=== PATIENT | female | born 1970 | race Caucasian/White ===

== ENCOUNTER 2022-08-08 10:44 | Emergency (ER) | payer BC ==
[2022-08-08 10:55] VITALS: BP 188/94; PULSE 72; O2SAT 98
--- NOTE | 2022-08-08 10:58 | ERPHSYRPT ---
- History of Present Illness Time Seen by Provider: 08/08/22 10:56 Source: patient Exam Limitations: no limitations Patient Subjective Stated Complaint: Pt states "I think I have an infected tooth and my face is swollen. I am going to my dentist on wednesday but when I called them they said to come here because they were concerned about the swelling." Triage Nursing Assessment: PT presented alert and oriented X 3, skin wpd. PT ambulates with an upright steady gait, able to speak in clear full sentences. pt face is swollen on the left side. Physician History: This a 52-year-old white female patient who presents with left upper dental pain and left facial swelling that began yesterday and was worse this morning. Patient states that she has a dental appointment on 08/10/2022. She is not on any antibiotics. She has been taking ibuprofen. Timing/Duration: abrupt onset Severity: mild (To moderate) ENT Location: facial (Left), dental (Left upper molars) Prearrival Treatment: over the counter meds Modifying Factors: Improves With: other (Mastication worsens) Associated Symptoms: facial pain/swelling (Left), tooth pain (Left upper molars), No difficulty swallowing, No voice change Allergies/Adverse Reactions: No Known Drug Allergies Allergy (Unverified 02/26/13 13:11) Home Medications: Esomeprazole Magnesium [Nexium] 40 mg PO DAILY 02/26/13 [History] Levothyroxine Sodium [Levothyroxine] 50 mcg PO DAILY 08/08/22 [History] Hx Tetanus, Diphtheria Vaccination/Date Given: Yes Hx Influenza Vaccination/Date Given: No Hx Pneumococcal Vaccination/Date Given: No Immunizations Up to Date: Yes Travel Risk - International Travel Have you traveled outside of the country in past 3 weeks: No - Coronavirus Screening Are you exhibiting any of the following symptoms?: No Close contact with a COVID-19 positive Pt in past 14-21 Days: No - Vaccine Status Have you recieved a Covid-19 vaccination: No - Review of Systems Constitutional: No Symptoms Eyes: No Symptoms Ears, Nose, & Throat: Other (Dental pain with associated left facial swelling) Respiratory: No Symptoms, No Stridor Cardiac: No Symptoms Abdominal/Gastrointestinal: No Symptoms Genitourinary Symptoms: No Symptoms Musculoskeletal: No Symptoms Skin: No Symptoms Neurological: No Symptoms Psychological: No Symptoms Endocrine: No Symptoms Hematologic/Lymphatic: No Symptoms Immunological/Allergic: No Symptoms All Other Systems: Reviewed and Negative - Past Medical History Pertinent Past Medical History: Yes ENT History: No Pertinent History Cardiac History: Hypertension Respiratory History: No Pertinent History Endocrine Medical History: No Pertinent History Musculoskeletal History: No Pertinent History GI Medical History: GERD History: No Pertinent History Psycho-Social History: No Pertinent History Female Reproductive Disorders: No Pertinent History Other Medical History: BREAST CLIP IN LEFT BREAST, GENITAL WARTS - Past Surgical History Past Surgical History: Yes Female Surgical History: Hysterectomy - Social History Smoking Status: Never smoker Exposure to second hand smoke: Yes Drug Use: none Patient Lives Alone: No - Nursing Vital Signs Nursing Vital Signs: Initial Vital Signs Temperature 93.3 F 08/08/22 10:51 Pulse Rate 72 08/08/22 10:51 Respiratory Rate 20 08/08/22 10:51 Blood Pressure 188/94 08/08/22 10:51 O2 Sat by Pulse Oximetry 98 08/08/22 10:51 Pain Scale Pain Intensity 4 - Physical Exam General Appearance: no apparent distress, alert, obese Eye Exam: bilateral eye: normal inspection, PERRL, EOMI Ear Exam: bilateral ear: auricle normal Nasal Exam: normal inspection Throat Exam: pharynx normal, dental tenderness (Left upper molars without abscess), moist mucus membranes Neck Exam: normal inspection, non-tender, supple, full range of motion Cardiovascular/Respiratory Exam: chest non-tender, no respiratory distress Abdominal Exam: non-tender Neurologic Exam: alert, oriented x 3, cooperative, manager delivery II-XII nml as tested, normal mood/affect, nml cerebellar function, nml station & gait, sensation nml Skin Exam: normal color, warm, dry SpO2 Interpretation: normal SpO2: 98 O2 Delivery: Room Air - Course Nursing assessment & vital signs reviewed: Yes Ordered Tests: Medication Summary Discontinued Medications Generic Name Dose Route Start Last Admin Trade Name Freq PRN Reason Stop Dose Admin Ceftriaxone Sodium 1,000 mg 08/08/22 11:00 Ceftriaxone Sodium 1000 Mg Inj Vial IM 08/08/22 11:01 STAT ONE Methylprednisolone Sodium 0 mg 08/08/22 11:05 Succinate 125 mg/ Sterile IM 08/08/22 11:06 Water 2 ml STAT ONE - Progress Progress: unchanged, pain not gone completely, re-examined Counseled pt/family regarding: diagnosis, need for follow-up, rad results - Departure Departure Disposition: Home Clinical Impression: Infected dental caries Condition: Stable Critical Care Time: No Referrals: KESHAV MATHIS MD [Primary Care Provider] - Follow up/PCP as directed Additional Instructions: Continue using ibuprofen as discussed. Take your medications as prescribed. Keep your dentist appointment on 08/10/2022. Prescriptions: Oxycodone HCl/Acetaminophen [Percocet 5-325 mg Tablet] 1 each PO Q8H PRN PRN #6 tablet MDD 3 PRN Reason: Moderate To Severe Pain Amoxicillin 500 mg Cap [Amoxil 500 mg] 500 mg PO TID #30 cap
[2022-08-08] MEDS ORDERED: Rocephin 1000 MG INJ IM ONE (11:00)
[2022-08-08] MEDS ORDERED: solu-MEDROL 125 MG, Sterile H2O 10 ml 2 ML IM ONE ×2 (11:05)
[2022-08-08] MEDS ORDERED: Rocephin 1000 MG INJ ONE (11:10)
[2022-08-08] MEDS ORDERED: Sterile H2O 10 ml IJ ONE (11:10)
[2022-08-08] MEDS ORDERED: solu-MEDROL ONE ×2 (11:10→11:18)
[2022-08-08] MEDS ORDERED: XYLOCAINE 1% HCL 20 ML MDV ONE (11:11)
== END 2022-08-08 11:41 | disposition home or self-care (01) ==
LOC: ED 10:44
DX: K04.7 Periapical abscess without sinus (principal); K02.9 Dental caries, unspecified; K08.89 Other specified disorders of teeth and supporting structures; I10 Essential (primary) hypertension; Z79.891 Long term (current) use of opiate analgesic; Z79.899 Other long term (current) drug therapy; Z28.310 Unvaccinated for COVID-19
CPT/HCPCS: 96372; 99283; J0696; J2930